=== PATIENT | female | born 1995 | race Caucasian/White ===

== ENCOUNTER 2016-09-16 15:27 | Emergency (ER) | payer OTHER ==
--- NOTE | 2016-09-16 17:23 | ED ORDER SUMMARY ---
..... Patient: KRZYSZTOF SCHWARZ OrderSheet [facility] VisitID: [id number] [place] [address] 21y, F Registration Date/Time: 09/16/2016 ORDER SHEET Weight: 61.2 kg (stated) Allergies: No Known Drug Allergy GENERAL ORDERS: CBC w Diff Urgent (15:52 09/16/2016 Nayely Aguirre) (Ack 15:55 NHouse ER Tech1) (16:07 HOShaughnessy R.N.) CMP Urgent (15:52 09/16/2016 Nayely Aguirre) (Ack 15:55 NHouse ER Tech1) (16:07 HOShaughmarco antonio R.N.) UA-Culture if indicated Urgent (15:52 09/16/2016 Nayely Aguirre) (Ack 15:55 NHouse ER Tech1) (16:07 HOShaughmarco antonio R.N.) Lipase Urgent (15:52 09/16/2016 Nayely Aguirre) (Ack 15:55 NHouse ER Tech1) (16:07 HOShaughnessy R.N.) Urine Urgent (15:52 09/16/2016 Nayely Aguirre) (Ack 15:55 NHouse ER Tech1) (16:07 HOShaughnessy R.N.) MEDICATION ORDERS: Zofran ODT PO 4 mg (NOW) (15:52 09/16/2016 Nayely Aguirer) (16:07 HOShaughmarky R.N.) IV FLUIDS: ORDER SHEET NOTES: [Electronically signed by Alber Biggs R.N. (17:41 09/16/2016)] [Electronically signed by Efren Cunningham Dr. (14:42 09/22/2016)] [Electronically locked/signed by Alber Biggs R.N. (17:41 09/16/2016)]
--- NOTE | 2016-09-16 17:23 | ED NURSING NOTES ---
Clinical Report - Nurses [facility] [address] [place] [address] 09/16/2016 15:33 Patient: KRZYSZTOF SCHWARZ TRIAGE Triage time 1541 AM. Chief Complaint: NAUSEA and VOMITING. Alert. No acute distress. --15:46 Alber Biggs R.N. 15:41 09/16/16. BP: 117/78. HR: 99. RR: 18. O2 saturation: 100%. Temp: 98.6 F. Pain level now: 03/25. --15:46 Alber Biggs R.N. Weight: 61.2 kg stated. Height/Length: 65 inches Per Patient. BMI: 22.5. --15:42 Alber Biggs R.N. Medications Insulin Regular Human (Conc) Subcutaneous. --17:40 Alber Biggs R.N. Allergies No Known Drug Allergy. --17:40 Alber Biggs R.N. History ( Patient presents to the ED with symptoms of sore throat and cough x 3 days. Patient states that she started feeling nauseous today and threw up once.). She has had nausea and vomiting. The vomiting has occurred only once. 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 SOCIAL HX: Never smoker. Occasional alcohol use. History of drug use. (never). She has had contact with a sick significant other. FALL RISK ASSESSMENT: Fall risk assessment completed. No fall risk identified. NUTRITIONAL RISK ASSESSMENT: The nutritional risk assessment revealed no deficiencies. FUNCTIONAL ASSESSMENT: Functional assessment: no impairments noted. LEARNING NEEDS ASSESSMENT: The learning needs assessment revealed no barriers. SKIN INTEGRITY ASSESSMENT: Skin integrity risk assessment completed. No skin integrity risk identified. --15:46 Alber Biggs R.N. PROBLEMS: Diabetes Mellitus Type 1. --17:41 Alber Biggs R.N. PHYSICAL ASSESSMENT Ambulatory to room. GENERAL / NEURO / PSYCH: Alert. Oriented X 4. Appears in no acute distress. HEENT: Mucous membranes are pink. RESPIRATORY: Respirations not labored. Breath sounds within normal limits. CVS: Normal sinus rhythm noted. Capillary refill less than 2 seconds. GI / : Emesis noted. Has vomited once. Abdomen soft and nontender. Bowel sounds within normal limits. SKIN: Skin is warm and dry. --15:46 Albre Biggs R.N. NURSING PROGRESS NOTES Call light placed in reach. Side rails up x 1. Bed placed in lowest position. --15:46 Alber Biggs R.N. 16:07 09/16/2016 Zofran ODT (Ondansetron) PO 4 mg given. Allergies verified and confirmed 5 rights. --16:07 Alber Biggs R.N. The plan of care for this patient has been created. Checked patient name. Blood samples drawn from the right antecubital space with 18g by nurse per protocol ; labeled in presence of the patient and sent to lab held: rainbow set. Head of bed elevated. Reassurance given to the patient. Checked patient name and birthdate: patient confirmed. Instructions provided to collect clean catch urine and patient verbalized understanding. Clean catch urine collected with return of yellow-colored urine; sample sent to lab for urinalysis and HCG. Call light placed in reach. Side rails up x 1. --16:11 Alber Biggs R.N. DISPOSITION / DISCHARGE Condition at departure: improved. The goals identified in the patient's plan of care were met. No learning barriers present. Discharge instructions provided and reviewed with the patient. Reviewed fever care instructions. Reviewed referral to a primary care physician. Reviewed need for increased fluid intake. Activity restrictions (rest) reviewed. Patient verbalized understanding. Written instructions provided in Maldivian. The patient was discharged home and accompanied by spouse. She left the Emergency Department ambulatory and via private vehicle. Spouse driving. FALL RISK ASSESSMENT: Fall risk assessment completed. No fall risk identified. --17:38 Alber Biggs R.N. 17:36 09/16/16. BP: 120/76. HR: 68. RR: 16. O2 saturation: 100%. Temp: 98.2 F. Pain level now: 0/10. --17:38 Alber Biggs R.N. Departure time: 1738 PM. --17:38 Alber Biggs R.N. Locked/Released at 09/16/2016 17:41 by Alber Biggs R.N.
--- NOTE | 2016-09-16 17:23 | ED CLINICAL REPORT ---
Clinical Report - Physicians/Mid Levels [facility] [address] [place] [address] 09/16/2016 15:33 Patient: KRZYSZTOF SCHWARZ Arrived- By private vehicle. Historian- patient. HISTORY OF PRESENT ILLNESS Chief Complaint: VOMITING and DIARRHEA. This started today and is still present (staying the same). It was abrupt in onset and has been constant but is not gone now. Recent travel. She has had nausea, vomiting and diarrhea. No black stools, bloody stools or abdominal pain. The illness is described as moderate. (also with cough and sore throat. with cough and itchy throat.). Similar symptoms previously: None. Recent medical care: Not recently seen/assessed. REVIEW OF SYSTEMS The patient has had fever. No difficulty with urination, dark urine or skin rash. All systems otherwise negative, except as recorded above. PAST HISTORY See nurses notes. SOCIAL HISTORY Never smoker. Occasional alcohol use. No drug use. Recent travel. Is a local resident. ADDITIONAL NOTES The nursing notes have been reviewed. PHYSICAL EXAM Vital Signs: 09/16/2016 15:41 BP: 117/78. HR: 99. RR: 18. O2 saturation: 100%. Temp: 98.6 F. Pain level now: 7/10. Blood pressure normal. Oxygen saturation normal. Appearance: Alert. Oriented X3. No acute distress. Eyes: Pupils equal, round and reactive to light. Eyes normal inspection. ENT: Ears normal. Nose normal. Pharynx normal. Neck: Normal inspection. Neck supple. CVS: Normal heart rate and rhythm. Heart sounds normal. Pulses normal. Respiratory: No respiratory distress. Breath sounds normal. Abdomen: Soft and nontender. No mass. (hyperactive bowel sounds). Skin: Skin warm and dry. Normal skin color. No rash. Normal skin turgor. Extremities: Extremities exhibit normal ROM. No lower extremity edema. LABS, X-RAYS, AND EKG Laboratory Tests: UA-Culture if indicated: (MIS: 09/16/2016 15:58) ( MsgRcvd 09/16/2016 16:45) Final results Test Result Flag Units (Reference) URINE COLOR YELLOW URINE APPEARANCE SL CLOUDY URINE GLUCOSE NEGATIVE (NEGATIVE) URINE BILIRUBIN NEGATIVE (NEGATIVE) URINE KETONE TRACE (NEGATIVE) URINE SPECIFIC GRAVITY 1.010 (1.010-1.030) URINE PH 6.0 (5.0-8.0) URINE PROTEIN TRACE (NEGATIVE) URINE UROBILINOGEN 0.2 EU/dL (0.2-1.0) URINE NITRITE NEGATIVE (NEGATIVE) URINE BLOOD 3+ (NEGATIVE) URINE LEUK ESTERASE TRACE (NEGATIVE) URINE RBC 1-3 rbc/hpf (0-1) URINE WBC 3-5 wbc/hpf (0-1) URINE EPITHELIAL CELLS >15 EPI/hpf (0-5) URINE BACTERIA MODERATE (2+ TO 3+) (NONE SEEN) URINE COMMENT CULTURE INDICATED URINE CULTURES ARE SET-UP BASED ON THE FOLLOWING CRITERIA:POSITIVE NITRITEPOSITIVE LEUKOCYTE ESTERASEGREATER THAN 10 WHITE BLOOD CELLSMODERATE (2+) OR GREATER BACTERIA Urine: (MIS: 09/16/2016 15:58) ( [facility] [place] [facility] 09/16/2016 16:25) Final results Test Result Flag Units (Reference) URINE NEGATIVE CBC w Diff: (MIS: 09/16/2016 16:03) ( [facility] [place] 09/16/2016 16:38) Final results Test Result Flag Units (Reference) WHITE BLOOD COUNT 7.9 K/uL (4.5-11.5) RED BLOOD COUNT 5.19 M/uL (4.00-5.20) HEMOGLOBIN 14.6 gm/dL (12.0-16.0) HEMATOCRIT 44.7 % (36.0-46.0) MEAN CELL VOLUME 86 fL (80-100) MEAN CORPUSCULAR HGB 28 pg (26-34) MEAN CORPUSCULAR HGB CONC 33 g/dL (31-37) RED CELL DISTRIBUTION WIDTH 13.3 % (11.6-14.8) PLATELET COUNT 207 K/uL (150-400) NEUTROPHIL % 80.8 H % (50-75) LYMPH % 12.1 L % (25-40) MONO % 6.4 % (3-14) EOSINOPHIL % 0.6 % (0-4) BASOPHIL % 0.1 % (0-2) CMP: (MIS: 09/16/2016 16:03) ( MsgRcvd 09/16/2016 16:56) Final results Test Result Flag Units (Reference) GLUCOSE 120 H mg/dL (70-110) BUN 15 mg/dL (7-18) CREATININE 0.7 mg/dL (0.6-1.3) Estimated GFR >60 mL/min Estimated GFR- >60 mL/min Note: Persistent reduction over 3 months in eGFR<60 mL/min/1.73 m2 defines CKD. Patients with eGFR values>=60 mL/min/1.73 m2 may also have CKD if evidence ofpersistent proteinuria. Additional information may be foundat www.kidney.org. SODIUM 140 mmol/L (136-145) POTASSIUM 4.0 mmol/L (3.5-5.1) CHLORIDE 104 mmol/L (98-107) CARBON DIOXIDE 27 mmol/L (21-32) CALCIUM 8.6 mg/dL (8.5-10.1) TOTAL PROTEIN 7.4 g/dL (6.4-8.2) ALBUMIN 3.4 g/dL (3.3-5.0) BILIRUBIN, TOTAL 0.4 mg/dL (0.0-1.0) ALKALINE PHOSPHATASE 88 U/L (46-116) AST (SGOT) 23 U/L (15-37) ALT (SGPT) 27 U/L (12-78) LIPASE 126 U/L (73-393) Culture, Urine: (MIS: 09/16/2016 15:58) ( MsgRcvd 09/18/2016 11:54) Final results Test Result Flag Units (Reference) CULTURE, URINE DATE: 09/18/16 PRELIM REPORT: FINAL REPORT -- LACSPE QUANTITATIVE URINE GROWTH: GREATER THAN 100,000 CFU/mL ID AND SENS TO FOLLOW: NO FURTHER WORKUP . PROGRESS AND PROCEDURES Course of Care: The patient is a pleasant 21-year-old female with past medical history significant for diabetes type 1 presenting for evaluation of nausea and vomiting. The patient is resting in bed and in no acute distress. Patient is nontoxic. Vital signs are unremarkable from triage. Patient has a sick contact. Her spouse has upper respiratory tract symptoms. Likely viral etiology for today's symptoms. We'll evaluate for other more sinister causes for the patient's symptoms here today. Patient is agreeable to the treatment plan. symptomatic medication provided. Workup shows no acute abnormalities except for urinalysis which is abnormal. Had discussion with patient again in regards to urinary symptoms. Patient again denies any urinary tract symptoms. Because of the epithelial cells in the UA, we will await culture results for confirmation of urinalysis. Patient is agreeable to the treatment plan. Discussed with patient symptomatically control of symptoms. Do not feel patient needs to be admitted to the hospital, require imaging, or need further emergency department evaluation/workup. Patient's repeat abdominal exam continues to be benign. Patient is resting in bed and in no acute distress. Symptoms have significantly improved with interventions provided in the emergency department. In discussed with patient workup, diagnosis, home care, follow-up, and return percussions. All questions answered. Patient expressed understanding of these instructions and was agreeable to them. reviewed note after UA cultures. Patient without symptoms. Will follow up with her doctor. Disposition: Discharged. Condition: good. CLINICAL IMPRESSION Vomiting with nausea. Diarrhea (acute). INSTRUCTIONS Warnings: GENERAL WARNINGS: Return or contact your physician immediately if your condition worsens or changes unexpectedly, if not improving as expected, or if other problems arise. SPECIFICALLY, return if you develop pain, fever, vomiting, the inability to keep fluids down, blood in vomitus, blood in diarrhea, fainting or lightheadedness. Prescription Medications: Zofran ODT 4 mg: every 8 hours as needed for nausea and vomiting. Dispense ten (10). No refill. Substitution is permissible. Phenergan w/ Codeine 10mg / 6.25mg per 5 mL: take 1 teaspoon every 6 hours. Dispense sixty (60) mL. No refill. Substitution is permissible. (as needed for cough and congestion) OTC Medications: Imodium (available over the counter): take according to label instructions. Follow-up: Return to the emergency department as needed. Follow up with your doctor in three days. Reason for referral: recheck today's concerns. Summary of care provided to patient via paper. Screening today revealed the patient's blood pressure to be in the normal range. The patient should follow up with a primary care provider for blood pressure management. Understanding of the discharge instructions verbalized by patient. (Electronically signed by Efren Cunningham Dr. 09/22/2016 14:42) Addenda for KRZYSZTOF SCHWARZ VisitID: [id number] Date: 09/16/2016 09/18/2016 19:37 attempted to reach pt, no answer. Voicemail left with return call back number and request for call back to speak to the charge nurse. (Electronically signed by Larissa Ramos R.N. - 09/18/2016 19:37) 09/18/2016 21:00 [place]. Spoke with pt who denies symptoms at this time and infomed her that if she becomes symptomatic, she can follow up with a local MD for the Rx. Pt agrees and will make appointment with her OBGYN "just to be sure." (Electronically signed by Larissa Ramos R.N. - 09/18/2016 21:00)
--- NOTE | 2016-09-16 17:23 | ED ORDER SUMMARY ---
..... Patient: KRZYSZTOF SCHWARZ OrderSheet [facility] VisitID: [id number] [place] [address] 21y, F Registration Date/Time: 09/16/2016 ORDER SHEET Weight: 61.2 kg (stated) Allergies: No Known Drug Allergy GENERAL ORDERS: CBC w Diff Urgent (15:52 09/16/2016 Nayely Aguirre) (Ack 15:55 NHouse ER Tech1) (16:07 HOShaughnessy R.N.) CMP Urgent (15:52 09/16/2016 Nayely Aguirre) (Ack 15:55 NHouse ER Tech1) (16:07 HOShaughmarco antonio R.N.) UA-Culture if indicated Urgent (15:52 09/16/2016 Nayely Aguirre) (Ack 15:55 NHouse ER Tech1) (16:07 HOShaughmarco antonio R.N.) Lipase Urgent (15:52 09/16/2016 Nayely Aguirre) (Ack 15:55 NHouse ER Tech1) (16:07 HOShaughnessy R.N.) Urine Urgent (15:52 09/16/2016 Nayely Aguirre) (Ack 15:55 NHouse ER Tech1) (16:07 HOShaughnessy R.N.) MEDICATION ORDERS: Zofran ODT PO 4 mg (NOW) (15:52 09/16/2016 Nayely Aguirre) (16:07 HOShaughmarky R.N.) IV FLUIDS: ORDER SHEET NOTES: [Electronically signed by Alber Biggs R.N. (17:41 09/16/2016)] [Electronically signed by Efren Cunningham Dr. (14:42 09/22/2016)] [Electronically locked/signed by Alber Biggs R.N. (17:41 09/16/2016)]
--- NOTE | 2016-09-16 17:23 | ED NURSING NOTES ---
Clinical Report - Nurses [facility] [address] [place] [address] 09/16/2016 15:33 Patient: KRZYSZTOF SCHWARZ TRIAGE Triage time 1541 AM. Chief Complaint: NAUSEA and VOMITING. Alert. No acute distress. --15:46 Alber Biggs R.N. 15:41 09/16/16. BP: 117/78. HR: 99. RR: 18. O2 saturation: 100%. Temp: 98.6 F. Pain level now: 03/25. --15:46 Alber Biggs R.N. Weight: 61.2 kg stated. Height/Length: 65 inches Per Patient. BMI: 22.5. --15:42 Alber Biggs R.N. Medications Insulin Regular Human (Conc) Subcutaneous. --17:40 Alber Biggs R.N. Allergies No Known Drug Allergy. --17:40 Alber Biggs R.N. History ( Patient presents to the ED with symptoms of sore throat and cough x 3 days. Patient states that she started feeling nauseous today and threw up once.). She has had nausea and vomiting. The vomiting has occurred only once. 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 Occasional alcohol use. History of drug use. (never). She has had contact with a sick significant other. FALL RISK ASSESSMENT: Fall risk assessment completed. No fall risk identified. NUTRITIONAL RISK ASSESSMENT: The nutritional risk assessment revealed no deficiencies. FUNCTIONAL ASSESSMENT: Functional assessment: no impairments noted. LEARNING NEEDS ASSESSMENT: The learning needs assessment revealed no barriers. SKIN INTEGRITY ASSESSMENT: Skin integrity risk assessment completed. No skin integrity risk identified. --15:46 Alber Biggs R.N. PROBLEMS: Diabetes Mellitus Type 1. --17:41 Alber Biggs R.N. PHYSICAL ASSESSMENT Ambulatory to room. GENERAL / NEURO / PSYCH: Alert. Oriented X 4. Appears in no acute distress. HEENT: Mucous membranes are pink. RESPIRATORY: Respirations not labored. Breath sounds within normal limits. CVS: Normal sinus rhythm noted. Capillary refill less than 2 seconds. GI / : Emesis noted. Has vomited once. Abdomen soft and nontender. Bowel sounds within normal limits. SKIN: Skin is warm and dry. --15:46 Alber Biggs R.N. NURSING PROGRESS NOTES Call light placed in reach. Side rails up x 1. Bed placed in lowest position. --15:46 Alber Biggs R.N. 16:07 09/16/2016 Zofran ODT (Ondansetron) PO 4 mg given. Allergies verified and confirmed 5 rights. --16:07 Alber Biggs R.N. The plan of care for this patient has been created. Checked patient name. Blood samples drawn from the right antecubital space with 18g by nurse per protocol ; labeled in presence of the patient and sent to lab held: rainbow set. Head of bed elevated. Reassurance given to the patient. Checked patient name and birthdate: patient confirmed. Instructions provided to collect clean catch urine and patient verbalized understanding. Clean catch urine collected with return of yellow-colored urine; sample sent to lab for urinalysis and HCG. Call light placed in reach. Side rails up x 1. --16:11 Alber Biggs R.N. DISPOSITION / DISCHARGE Condition at departure: improved. The goals identified in the patient's plan of care were met. No learning barriers present. Discharge instructions provided and reviewed with the patient. Reviewed fever care instructions. Reviewed referral to a primary care physician. Reviewed need for increased fluid intake. Activity restrictions (rest) reviewed. Patient verbalized understanding. Written instructions provided in Zambian. The patient was discharged home and accompanied by spouse. She left the Emergency Department ambulatory and via private vehicle. Spouse driving. FALL RISK ASSESSMENT: Fall risk assessment completed. No fall risk identified. --17:38 Alber Biggs R.N. 17:36 09/16/16. BP: 120/76. HR: 68. RR: 16. O2 saturation: 100%. Temp: 98.2 F. Pain level now: 0/10. --17:38 Alber Biggs R.N. Departure time: 1738 PM. --17:38 Alber Biggs R.N. Locked/Released at 09/16/2016 17:41 by Alber Biggs R.N.
--- NOTE | 2016-09-22 14:42 | ED DISCHARGE INSTRUCTIONS ---
Patient: KRZYSZTOF SCHWARZ General Instructions [facility] VisitID: [id number] [place] [address] 21y, F Registration Date/Time: 09/16/2016 Vomiting with nausea. Diarrhea (acute). INSTRUCTIONS Warnings: GENERAL WARNINGS: Return or contact your physician immediately if your condition worsens or changes unexpectedly, if not improving as expected, or if other problems arise. SPECIFICALLY, return if you develop pain, fever, vomiting, the inability to keep fluids down, blood in vomitus, blood in diarrhea, fainting or lightheadedness. Prescription Medications: Zofran ODT 4 mg: every 8 hours as needed for nausea and vomiting. Dispense ten (10). No refill. Substitution is permissible. Phenergan w/ Codeine 10mg / 6.25mg per 5 mL: take 1 teaspoon every 6 hours. Dispense sixty (60) mL. No refill. Substitution is permissible. (as needed for cough and congestion) OTC Medications: Imodium (available over the counter): take according to label instructions. Follow-up: Return to the emergency department as needed. Follow up with your doctor in three days. Reason for referral: recheck today's concerns. Summary of care provided to patient via paper. Screening today revealed the patient's blood pressure to be in the normal range. The patient should follow up with a primary care provider for blood pressure management. Understanding of the discharge instructions verbalized by patient. ADDITIONAL INFORMATION Vomiting [6Yr-Adult] Vomiting is a common symptom that may be due to different causes. These include gastroenteritis ("stomach flu"), food poisoning and gastritis. There are other more serious causes of vomiting which may be hard to diagnose early in the illness. Therefore, it is important to watch for the warning signs listed below. The main danger from repeated vomiting is dehydration. This is due to excess loss of water and minerals from the body. When this occurs, body fluids must be replaced. Home Care: If symptoms are severe, rest at home for the next 24 hours. You may use acetaminophen (Tylenol) or ibuprofen (Motrin, Advil) to control fever, unless another medicine was prescribed. [NOTE : If you have chronic liver or kidney disease or ever had a stomach ulcer or GI bleeding, talk with your doctor before using these medicines.] (Aspirin should never be used in anyone under 18 years of age who is ill with a fever. It may cause severe liver damage.) Avoid tobacco and alcohol use, which may worsen your symptoms. If medicines for vomiting were prescribed, take as directed. Once vomiting stops, then follow these guidelines: During The First 12-24 Hours follow the diet below: FRUIT JUICES: Apple, grape juice, clear fruit drinks, and electrolyte replacement drinks. BEVERAGES: Soft drinks without caffeine; mineral water (plain or flavored), decaffeinated tea and coffee. SOUPS: Clear broth, consomm and bouillon DESSERTS: Plain gelatin, popsicles and fruit juice bars. As you feel better, you may add 6-8 ounces of yogurt per day. During The Next 24 Hours you may add the following to the above: Hot cereal, plain toast, bread, rolls, crackers Plain noodles, rice, mashed potatoes, chicken noodle or rice soup Unsweetened canned fruit (avoid pineapple), bananas Limit caffeine and chocolate. No spices or seasonings except salt. During The Next 24 Hours Gradually resume a normal diet, as you feel better and your symptoms lessen. Follow Up with your doctor as advised if you are not improving over the next 2-3 days. Get Prompt Medical Attention if any of the following occur: Constant right-sided lower abdominal pain or increasing general abdominal pain Continued vomiting (unable to keep liquids down) for 24 hours Frequent diarrhea (more than 5 times a day); blood (red or black color) or mucus in diarrhea Reduced urine output or extreme thirst Weakness, dizziness or fainting Unusually drowsy or confused Fever of 100.4F (38C) oral or higher, not better with fever medication Yellow color of the eyes or skin Diarrhea, Uncertain Cause (Adult, Report Pending) Diarrhea has several possible causes. Commonstomach fluis caused by a virus. Food poisoning, bacteria or parasites are other causes for diarrhea. Only diarrhea caused by bacteria or parasites requires treatment with an antibiotic. Diarrhea from a virus or food poisoning improves with simple home treatment. A stool sample is needed to make the diagnosis of an infection with bacteria or parasites. Up to three stool specimens may be required to diagnose This may take up to two days to get the result. It may be necessary to wait until the stool test is complete to make the diagnosis and select the best antibiotic to prescribe. Home Care: If symptoms are severe, rest at home for the next 24 hours or until you are feeling better. You may use acetaminophen (Tylenol) or ibuprofen (Motrin, Advil) to control fever, unless another medicine was prescribed. [NOTE: If you have chronic liver or kidney disease or ever had a stomach ulcer or GI bleeding, talk with your doctor before using these medicines.] (Aspirin should never be used in anyone under 18 years of age who is ill with a fever. It may cause severe liver damage.) Avoid tobacco, caffeine and alcohol, which may worsen your symptoms. If anti-diarrhea medicine was prescribed, take this only as directed. Sometimes anti-diarrhea medicine can make your condition worse if the cause is an infectious diarrhea. Therefore, anti-diarrhea medicine should not be taken for this condition unless advised by your doctor. During The First 12-24 Hours follow the diet below: BEVERAGES: Sport drinks like Gatorade, soft drinks without caffeine; giancarlo logan, mineral water (plain or flavored), decaffeinated tea and coffee. SOUPS: Clear broth, consomm and bouillon DESSERTS: Plain gelatin (Jell-O), popsicles and fruit juice bars. During The Next 24 Hours you may add the following to the above: Hot cereal, plain toast, bread, rolls, crackers Plain noodles, rice, mashed potatoes, chicken noodle or rice soup Unsweetened canned fruit (avoid pineapple), bananas Limit fat intake to less than 15 grams per day by avoiding margarine, butter, oils, mayonnaise, sauces, gravies, fried foods, peanut butter, meat, poultry and fish. Limit fiber; avoid raw or cooked vegetables, fresh fruits (except bananas) and bran cereals. Limit caffeine and chocolate. No spices or seasonings except salt. During The Next 24 Hours Gradually resume a normal diet, as you feel better and your symptoms lessen. Follow Up with your doctor or as advised if you are not improving over the next two days. If you were asked to bring a specimen from home, bring the sample on the day of collection. You may call in 2 days (or as directed) for the results. Get Prompt Medical Attention if any of the following occur: Increasing abdominal pain or constant lower right abdominal pain Continued vomiting (unable to keep liquids down) Frequent diarrhea (more than 5 times a day) Blood in vomit or stool (black or red color) Reduced oral intake Dark urine, reduced urine output Weakness, dizziness, fainting Drowsiness, confusion, stiff neck or seizure Fever of 100.4F (38C) oral or higher, not better with fever medication New rash Ondansetron Oral disintegrating tablet What is this medicine? ONDANSETRON (on MARÍA se manny) is used to treat nausea and vomiting caused by chemotherapy. It is also used to prevent or treat nausea and vomiting after surgery. How should I use this medicine? These tablets are made to dissolve in the mouth. Do not try to push the tablet through the foil backing. With dry hands, peel away the foil backing and gently remove the tablet. Place the tablet in the mouth and allow it to dissolve, then swallow. While you may take these tablets with water, it is not necessary to do so. Talk to your metal window frame maker regarding the use of this medicine in children. Special care may be needed. What side effects may I notice from receiving this medicine? Side effects that you should report to your doctor or health small animal caretaker as soon as possible: allergic reactions like skin rash, itching or hives, swelling of the face, lips, or tongue breathing problems dizziness fast or irregular heartbeat feeling faint or lightheaded, falls fever and chills swelling of the hands and feet tightness in the chest Side effects that usually do not require medical attention (report to your doctor or health small animal caretaker if they continue or are bothersome): constipation or diarrhea headache What may interact with this medicine? Do not take this medicine with any of the following medications: -apomorphine -cisapride -dofetilide -dronedarone -pimozide -thioridazine -ziprasidone This medicine may also interact with the following medications: -carbamazepine -phenytoin -rifampicin -tramadol -other medicines that prolong the QT interval (cause an abnormal heart rhythm) What if I miss a dose? If you miss a dose, take it as soon as you can. If it is almost time for your next dose, take only that dose. Do not take double or extra doses. Where should I keep my medicine? Keep out of the reach of children. Store between 2 and 30 degrees C (36 and 86 degrees F). Throw away any unused medicine after the expiration date. What should I tell my health care provider before I take this medicine? They need to know if you have any of these conditions: heart disease history of irregular heartbeat liver disease low levels of magnesium or potassium in the blood an unusual or allergic reaction to ondansetron, granisetron, other medicines, foods, dyes, or preservatives or trying to get breast-feeding What should I watch for while using this medicine? Check with your doctor or health small animal caretaker as soon as you can if you have any sign of an allergic reaction. You have been given the following additional information: Vomiting (6Y-Adult) Diarrhea, Unk Cause (Adult) Report Pendg Ondansetron Oral disintegrating tablet (Electronically signed by Efren Cunningham Dr. 09/22/2016 14:42)
--- NOTE | 2016-09-22 14:43 | ED MAR SUMMARY ---
..... Medication Administration Record [facility] [address] [place] [address] Patient: KRZYSZTOF SCHWARZ Visit ID: [id number] 21y, F Weight: 61.2 kg Height/Length: 65 in BMI: 22.5 ALLERGIES: No Known Drug Allergy Given 16:07 09/16/2016 Alber Biggs R.N. Medication Administered: ZOFRAN ODT [PO] (ONDANSETRON), Dose: 4 mg PO. Medication Ordered: Zofran ODT PO 4 mg (NOW).
--- NOTE | 2016-09-22 14:43 | ED MAR SUMMARY ---
..... Medication Administration Record [facility] [address] [place] [address] Patient: KRZYSZTOF SCHWARZ Visit ID: [id number] 21y, F Weight: 61.2 kg Height/Length: 65 in BMI: 22.5 ALLERGIES: No Known Drug Allergy Given 16:07 09/16/2016 Alber Biggs R.N. Medication Administered: ZOFRAN ODT [PO] (ONDANSETRON), Dose: 4 mg PO. Medication Ordered: Zofran ODT PO 4 mg (NOW).
--- NOTE | 2016-09-22 14:43 | ED MED RECONCILIATION SUMMARY ---
Patient: KRZYSZTOF SCHWARZ Medication Reconciliation Report [facility] VisitID: [id number] [place] [address] 21y, F Registration Date/Time: 09/16/2016 Weight: 61.2 kg Height/Length: 65 in. BMI: 22.5 ALLERGIES: No Known Drug Allergy The patient's Home Medications are listed below: THE FOLLOWING MEDICATIONS NEED TO BE RECONCILED: Insulin Regular Human (Conc) Subcutaneous The source(s) of the original Home Medication information: Not obtained. The following Medications were given to the patient in the Emergency Department: Zofran ODT [PO] PO 4 mg, administered: 09/16/2016 4:07:00 PM The following Medications were prescribed to the patient: Imodium (available over the counter): take according to label instructions. -- Efren Cunningham Dr. Zofrflorence ODT 4 mg: every 8 hours as needed for nausea and vomiting. Dispense ten (10). No refill. Substitution is permissible. -- Efren Cunningham Dr. Phenergan w/ Codeine 10mg / 6.25mg per 5 mL: take 1 teaspoon every 6 hours. Dispense sixty (60) mL. No refill. Substitution is permissible.(as needed for cough and congestion) -- Efren Cunningham Dr.
--- NOTE | 2016-09-22 14:43 | ED MED RECONCILIATION SUMMARY ---
Patient: KRZYSZTOF SCHWARZ Medication Reconciliation Report [facility] VisitID: [id number] [place] [address] 21y, F Registration Date/Time: 09/16/2016 Weight: 61.2 kg Height/Length: 65 in. BMI: 22.5 ALLERGIES: No Known Drug Allergy The patient's Home Medications are listed below: THE FOLLOWING MEDICATIONS NEED TO BE RECONCILED: Insulin Regular Human (Conc) Subcutaneous The source(s) of the original Home Medication information: Not obtained. The following Medications were given to the patient in the Emergency Department: Zofran ODT [PO] PO 4 mg, administered: 09/16/2016 4:07:00 PM The following Medications were prescribed to the patient: Imodium (available over the counter): take according to label instructions. -- Efren Cunningham Dr. Zofrflorence ODT 4 mg: every 8 hours as needed for nausea and vomiting. Dispense ten (10). No refill. Substitution is permissible. -- Efren Cunningham Dr. Phenergan w/ Codeine 10mg / 6.25mg per 5 mL: take 1 teaspoon every 6 hours. Dispense sixty (60) mL. No refill. Substitution is permissible.(as needed for cough and congestion) -- Efren Cunningham Dr.
== END 2016-09-16 17:36 | disposition home or self-care (01) ==
LOC: ED SRH 15:27
DX: R11.2 Nausea with vomiting, unspecified (principal); R19.7 Diarrhea, unspecified; R82.79 Other abnormal findings on microbiological examination of urine; E10.9 Type 1 diabetes mellitus without complications
CPT/HCPCS: 90004; 90100; 90469; 92235; 93070; 95059